=== PATIENT | female | born 1995 | race Two or more races ===

== ENCOUNTER 2016-07-02 03:43 | Emergency (ER) | payer OTHER ==
[2016-07-02 04:20] LABS: BASO % 0.2 % (0.2-1.0); EOS # 0.1 (0.0-0.5); EOS % 1.5 % (0.9-2.9); HEMATOCRIT 35.2 % (37.0-47.0); IMM NEUT% 0.3 % (0-1); LYMPH # 3.1 (1.0-4.8); LYMPH % 35.5 % (15-45); MEAN CELL VOLUME 61.9 fl (81.0-99.0); MEAN CORPUSCULAR HEMOGLOBIN 19.3 pg (27.0-31.0); MEAN CORPUSCULAR HGB CONC 31.3 g/dl (33.0-37.0); MEAN PLATELET VOLUME 9.8 fl (7.4-10.4); MONO # 0.5 (0.0-0.8); MONO % 5.2 % (4-12); NEUT % 57.3 % (43-75); PLATELET COUNT 325 K/mm3 (130-400); RED CELL DISTRIBUTION WIDTH 17.7 % (11.5-14.5)
[2016-07-02 04:23] LABS: URINE BILIRUBIN NEGATIVE (NEGATIVE); URINE BLOOD 4+ (NEGATIVE); URINE GLUCOSE (UA) NEGATIVE (NEGATIVE); URINE LEUKOCYTE ESTERASE TRACE (NEGATIVE); URINE NITRITE NEGATIVE (NEGATIVE); URINE PROTEIN NEGATIVE (NEGATIVE); URINE UROBILINOGEN NORMAL (0-1 mg/dl)
[2016-07-02 04:24] LABS: URINE APPEARANCE HAZY; URINE COLOR YELLOW
[2016-07-02 04:25] LABS: HCG,QUALITATIVE URINE POSITIVE
[2016-07-02 04:33] LABS: URINE BACTERIA RARE
[2016-07-02 05:14] LABS: ALB/GLOB RATIO 1.2 (>1.0); ALBUMIN 4.2 gm/dL (3.5-5.7); CALCIUM 9.4 mg/dL (8.6-10.3)
[2016-07-02 05:28] LABS: ANISOCYTOSIS 2+; HYPOCHROMIA 1+; PLATELET ESTIMATE NORMAL (NORMAL)
--- NOTE | 2016-07-02 09:10 | US ---
Exam: Complete obstetric ultrasound less than 14 weeks COMPARISON: None INDICATION: Early , cramping and bleeding, suprapubic pain. Findings: Transabdominal obstetric ultrasound less than 14 weeks was obtained. Real-time sonographic imaging demonstrated a single live intrauterine with a heart rate of 167 bpm. [place]-rump length of 2.2 cm correlates with a gestational age of 8 weeks 6 days and a sonographic JANICE of 02/05/2017. This is almost 3 weeks discrepant of the clinical dating of 11 weeks 4 days. Gestational sac is normal in size and contour. No perigestational hemorrhage is identified. Normal yolk sac is seen. Right ovary measures 3.7 x 3.2 x 1.8 cm and left ovary measures 3.5 x 2.4 x 1.7 cm. There is no cystic or solid ovarian mass. Blood flow is present within both ovaries. There is no significant free fluid in the pelvis. IMPRESSION: Single live intrauterine of approximately 8 weeks 6 days gestation with a heart rate of 167 bpm. Sonographic JANICE is 02/05/2017. Preliminary report transmitted to the emergency department from [facility] at 0549 hours 07/02/2016.
[2016-07-04 08:32] LABS: CHLAMYDIA BD Negative (Negative); N.GONORRHOEAE BD Negative (Negative); SOURCE Urine (())
== END 2016-07-02 06:25 | disposition home or self-care (01) ==
LOC: ED 03:43
DX: O20.0 Threatened abortion (principal); Z3A.08 8 weeks gestation of pregnancy